=== PATIENT | female | born 1980 ===

== ENCOUNTER 2022-11-20 11:00 | Inpatient (IN) | payer OTHER ==
[~2022-11-20] VITALS: Ht 167.6 cm; Wt 72.6 kg
[2022-11-29] MEDS ORDERED: GAS RELIEF125 MG PO (13:25)
[2022-11-29] MEDS ORDERED: TRAM1TAB98 PO (13:26)
[2022-11-29] MEDS ORDERED: TANDEM DUAL AC106 MG PO (13:27)
[2022-11-29] MEDS ORDERED: PEPCID AC20 MG PO (13:30)
[2022-11-29] MEDS ORDERED: AMOX1TAB5 PO (13:50)
== END 2022-11-29 15:37 | disposition home or self-care (01) | DRG 742 ==
LOC: SURG-SUITE 11-26 07:00 → O/R 11-26 07:26 → SURG-SUITE 11-26 11:00 → OB/GYN 11-26 13:25
PROVIDERS: ADMIT Obstetrics & Gynecology; ATTEND Obstetrics & Gynecology
PROC: 0UT94ZZ Resection of Uterus, Percutaneous Endoscopic Approach (ICD-10-PCS; 2022-11-26)
PROC: 0UT74ZZ Resection of Bilateral Fallopian Tubes, Percutaneous Endoscopic Approach (ICD-10-PCS; principal; 2022-11-26 07:00)
PROC: 30233N1 Transfusion of Nonautologous Red Blood Cells into Peripheral Vein, Percutaneous Approach (ICD-10-PCS; 2022-11-27)
PROC: BW4GZZZ Ultrasonography of Pelvic Region (ICD-10-PCS; 2022-11-27)
PROC: BW21ZZZ Computerized Tomography (CT Scan) of Abdomen and Pelvis (ICD-10-PCS; 2022-11-28)
DX: N85.01 Benign endometrial hyperplasia (principal); D62 Acute posthemorrhagic anemia; N72 Inflammatory disease of cervix uteri; N73.6 Female pelvic peritoneal adhesions (postinfective); Z20.822 Contact with and (suspected) exposure to COVID-19